=== PATIENT | female | born 1970 | race Caucasian/White ===

== ENCOUNTER 2017-10-28 15:36 | Emergency (ER) | payer OTHER ==
[~2017-10-28] VITALS: Ht 162.6 cm; Wt 77.1 kg
[~2017-10-28 15:36] MED LIST: LEVO0.173 PO
[2017-10-28 15:41] VITALS: BP 145/92
--- NOTE | 2017-10-28 15:46 | NUR ---
PT AMBULATED TO BED 9
--- NOTE | 2017-10-28 15:57 | NUR ---
PATIENT PRESENTS TO ED WITH C/O LEFT KNEE PAIN X 2 DAYS --DENIES INJURY/TRAUMA NOTED MILD SWELLING 2 POPLITEAL/PEDAL PULSE---AMBULATORY WITH STEADY GAIT NO DISCOLORATION NOTED DENIES N/V/D; SKIN IS PINK/WARM/DRY; AAOX4 WITH EVEN AND STEADY GAIT; LUNGS CLEAR BL; HR EVEN AND REGULAR; PT DENIES ANY FEVER, CP, SOB, OR COUGH AT THIS TIME; PATIENT STATES PAIN OF 5/10 AT THIS TIME; VSS; PATIENT POSITIONED FOR COMFORT; HOB ELEVATED; BEDRAILS UP X2; BED DOWN. ER MD MADE AWARE OF PT STATUS.
--- NOTE | 2017-10-28 16:09 | NUR ---
Patient being evaluated by physician HIDES INSPECTOR at bedside.
[2017-10-28] MEDS ORDERED: IBUPROFEN 600 MG TAB PO ONE (16:15)
[2017-10-28 16:50] VITALS: BP 145/92
== END 2017-10-28 16:50 | disposition home or self-care (01) ==
LOC: MED 15:36
DX: S86.912A Strain of unspecified muscle(s) and tendon(s) at lower leg level, left leg, initial encounter (principal); X58.XXXA Exposure to other specified factors, initial encounter; Y93.89 Activity, other specified; Y92.89 Other specified places as the place of occurrence of the external cause; Y99.8 Other external cause status
CPT/HCPCS: 99282

== ENCOUNTER 2022-02-11 12:24 | Emergency (ER) | payer OTHER ==
[~2022-02-11] VITALS: Ht 162.6 cm; Wt 89.8 kg
[2022-02-11 12:32] VITALS: BP 139/95
--- NOTE | 2022-02-11 12:35 | NUR ---
AMBULATED TO BED 10
--- NOTE | 2022-02-11 12:47 | NUR ---
51/ Y/O FEMALE BIB SELF C/O DIZZINESS AND "FEEL LIKE THERE ISNT ANY CIRCULATION IN MY ARM". PER PT SHE WAS REFERRED FROM URGENT CARE FOR FURTHER EVAL. DENIES PAIN OR NUMBNESS, NO SIGNS OF FACIAL DROOP, SPEAKING IN CLEAR SENTENCES, FULL ROM OF BUE, FOOD CRITIC LESS THAN 3 SECONDS, BILATERAL HAND GRASPS EQUAL. PMH: HX THYROID CANCER NKA
--- NOTE | 2022-02-11 13:35 | NUR ---
DR PRATT AT BEDSIDE FOR EVAL
[2022-02-11 13:54] LABS: BASOPHILS # (AUTO) 0.1 K/uL (0.00-0.22); BASOPHILS % (AUTO) 0.7 % (0.0-2.0); EOSINOPHILS # (AUTO) 0.2 K/uL (0-0.4); EOSINOPHILS % (AUTO) 2.3 % (0.0-4.0); HEMATOCRIT 37.2 % (36-48); HEMOGLOBIN 12.1 g/dL (12.0-16.0); LYMPHOCYTES # (AUTO) 1.6 K/uL (2.5-16.5); LYMPHOCYTES % (AUTO) 18.5 % (20.5-51.1); MEAN CORPUSCULAR HEMOGLOBIN 26 pg (27-31); MEAN CORPUSCULAR HGB CONC 32 g/dL (33-37); MEAN CORPUSCULAR VOLUME 81.6 fL (80-94); MONOCYTES # (AUTO) 0.9 K/uL (0.8-1.0); MONOCYTES % (AUTO) 10.4 % (1.7-9.3); NEUTROPHILS # (AUTO) 5.9 K/uL (1.8-7.7); NEUTROPHILS % (AUTO) 68.1 % (42.2-75.2); PLATELET COUNT (AUTO) 290 K/uL (140-450); RED BLOOD CELL COUNT(AUTO) 4.56 MIL/uL (4.20-5.40); RED CELL DISTRIBUTION WIDTH 14.7 % (11.6-13.7); WHITE BLOOD COUNT (AUTO) 8.6 K/uL (4.8-10.8)
[2022-02-11 14:07] LABS: ANION GAP 12.4 (8-16); CARBON DIOXIDE 27.6 mmol/L (21-32); CREATININE 0.7 mg/dL (0.6-1.3)
[2022-02-11 15:25] VITALS: BP 124/89
--- NOTE | 2022-02-11 15:25 | NUR ---
Patient discharged with v/s stable. Written and verbal after care instructions given. Patient verbalized understanding. Ambulatory with steady gait. All questions addressed prior to discharge. Advised to follow up with PMD.
== END 2022-02-11 15:25 | disposition home or self-care (01) ==
LOC: MED 12:24
DX: R42 Dizziness and giddiness (principal); R06.02 Shortness of breath; R20.0 Anesthesia of skin; Z90.49 Acquired absence of other specified parts of digestive tract; Z98.890 Other specified postprocedural states; Z79.899 Other long term (current) drug therapy
CPT/HCPCS: 36415; 80048; 81002; 81025; 84443; 85025; 99283

== ENCOUNTER 2022-08-24 07:19 | Emergency (ER) | payer OTHER ==
[~2022-08-24] VITALS: Ht 162.6 cm; Wt 98.0 kg
[2022-08-24 07:37] VITALS: BP 114/76
[2022-08-24] MEDS ORDERED: IPRATROPIUM 0.02% 0.5 MG/2.5 ML NEBU INH ONE (08:30)
--- NOTE | 2022-08-24 08:37 | NUR ---
KAY AND FLU SWABS COLLECTED AND HANDED TO UNIVERSITY ADMINISTRATOR FAWAD
--- NOTE | 2022-08-24 08:39 | NUR ---
52/F PRESENTS TO ED WITH C/O CHEST PAIN RADIATING TO LEFT ARM AND SOB SINCE LAST NIGHT, STATES SHE WAS RECENTLY SICK WITH COLD S/S AND GIVEN RX OF MEDROL WITH NO RELIEF. DENIES N/V/D, DIZZINESS OR HEADACHE.
--- NOTE | 2022-08-24 08:41 | NUR ---
PT AMBULATED TO ER BED 2
[2022-08-24 08:48] LABS: BASOPHILS # (AUTO) 0.1 K/uL (0.00-0.22); BASOPHILS % (AUTO) 0.7 % (0.0-2.0); EOSINOPHILS # (AUTO) 0.3 K/uL (0-0.4); EOSINOPHILS % (AUTO) 3.5 % (0.0-4.0); HEMATOCRIT 44.3 % (36-48); HEMOGLOBIN 14.4 g/dL (12.0-16.0); LYMPHOCYTES # (AUTO) 1.9 K/uL (2.5-16.5); MEAN CORPUSCULAR HEMOGLOBIN 28 pg (27-31); MEAN CORPUSCULAR HGB CONC 33 g/dL (33-37); MEAN CORPUSCULAR VOLUME 84.6 fL (80-94); MONOCYTES # (AUTO) 0.9 K/uL (0.8-1.0); MONOCYTES % (AUTO) 10.4 % (1.7-9.3); NEUTROPHILS # (AUTO) 5.4 K/uL (1.8-7.7); NEUTROPHILS % (AUTO) 63.4 % (42.2-75.2); PLATELET COUNT (AUTO) 331 K/uL (140-450); RED BLOOD CELL COUNT(AUTO) 5.24 MIL/uL (4.20-5.40); RED CELL DISTRIBUTION WIDTH 14.8 % (11.6-13.7); WHITE BLOOD COUNT (AUTO) 8.5 K/uL (4.8-10.8)
[2022-08-24 09:38] LABS: ALBUMIN 4.2 g/dL (3.4-5.0); ANION GAP 9.8 (8-16); ASPARTATE AMINOTRANSFERASE 29 U/L (15-37); CARBON DIOXIDE 32.1 mmol/L (21-32); CHLORIDE 101 mmol/L (98-107); CREATININE 0.7 mg/dL (0.6-1.3); GFR ARICAN-AMERICAN 113 mL/min (>90); GLUCOSE 92 mg/dL (74-106); POTASSIUM 3.9 mmol/L (3.5-5.1); SODIUM SERUM 139 mmol/L (136-145); TOTAL BILIRUBIN 0.5 mg/dL (0.0-1.0); UREA NITROGEN, BLOOD 17 mg/dL (7-18)
[2022-08-24] MEDS ORDERED: FAMOTIDINE 20 MG TAB PO ONE (09:40)
[2022-08-24] MEDS ORDERED: DICYCLOMINE HCL LIQUID 20 MG, ALUMINUM HYD/MAG/SIMETHICONE 30 ML, LIDOCAINE VISCOUS 2% ... PO ONE ×3 (09:40)
[2022-08-24] MEDS ORDERED: KETOROLAC 30 MG/ML VIAL IM ONE (09:40)
[2022-08-24] MEDS ORDERED: ALUMINUM HYD/MAG/SIMETHICONE 30 ML UDC ONE (09:56)
[2022-08-24] MEDS ORDERED: DICYCLOMINE HCL LIQUID 10 MG/5 ML UDC ONE (09:57)
--- NOTE | 2022-08-24 11:00 | NUR ---
a/o times 4, nad, better about epig pain, o2 sat98% ra, sr up times 2
[2022-08-24] MEDS ORDERED: ALBU0.0912 INH (11:15)
[2022-08-24] MEDS ORDERED: NAPR-54 PO (11:15)
[2022-08-24] MEDS ORDERED: SUD30 PO (11:16)
[2022-08-24] MEDS ORDERED: FAMO-90 PO (11:48)
--- NOTE | 2022-08-24 12:45 | NUR ---
Patient discharged with v/s stable. Written and verbal after care instructions given and explained. Patient verbalized understanding. Ambulatory with steady gait. All questions addressed prior to discharge. Advised to follow up with PMD.
[2022-08-24 13:00] VITALS: BP 123/78
== END 2022-08-24 12:45 | disposition home or self-care (01) ==
LOC: MED 07:19
DX: J06.9 Acute upper respiratory infection, unspecified (principal); R07.2 Precordial pain; R06.02 Shortness of breath; Z20.822 Contact with and (suspected) exposure to COVID-19; Z85.850 Personal history of malignant neoplasm of thyroid; Z79.899 Other long term (current) drug therapy; Z79.1 Long term (current) use of non-steroidal anti-inflammatories (NSAID)
CPT/HCPCS: 36415; 71045; 80053; 81025; 84484; 85025; 85379; 87426; 87804; 93005; 94640; 96372; 99285; J1885; J7644